=== PATIENT | male | born 1985 | race Caucasian/White ===

== ENCOUNTER 2019-05-04 14:44 | Emergency (ER) | payer OTHER, SELFPAY ==
[2019-05-04 14:54] VITALS: BP 129/78; PULSE 68; RESP 16; TEMP 36.8; O2SAT 99
[2019-05-04 16:53] VITALS: BP 133/86; PULSE 82; RESP 20; TEMP 36.7; O2SAT 98
[2019-05-04 16:59] VITALS: BP 133/86; PULSE 82; RESP 20; TEMP 36.7; O2SAT 98
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
== END 2019-05-04 17:03 | disposition home or self-care (01) ==
PROVIDERS: Emergency Provider Physician Assistant Medical
DX: S01.81XA Laceration without foreign body of other part of head, initial encounter (principal); V18.0XXA Pedal cycle driver injured in noncollision transport accident in nontraffic accident, initial encounter
CPT/HCPCS: 12013